=== PATIENT | female | born 1990 | race African-American/Black ===

== ENCOUNTER 2020-06-20 09:00 | Outpatient (CLI) | payer OTHER | END 2020-06-20 23:59 | disposition home or self-care (01) | LOC: LAB 09:00 | PROVIDERS: ATTEND Specialist | DX: U07.1 COVID-19 (principal) | CPT/HCPCS: 87426; C9803 ×2; U0003 ==

== ENCOUNTER 2020-10-16 08:43 | Outpatient (CLI) | payer OTHER ==
[2020-10-18] MEDS ORDERED: ANESTHESIA TRAY IN PYXIS 1 EA TRAY MC ONE (15:42)
== END 2020-10-16 23:59 | disposition home or self-care (01) ==
LOC: LAB 08:43
PROVIDERS: ATTEND Specialist
DX: Z01.812 Encounter for preprocedural laboratory examination (principal); Z20.822 Contact with and (suspected) exposure to COVID-19
CPT/HCPCS: C9803; U0003

== ENCOUNTER 2020-10-19 06:02 | Day surgery (SDC) | payer OTHER ==
[2020-10-19] MEDS ORDERED: KETOROLAC TROMETHAMINE INJ 30 MG/ML VIAL ONE (06:23)
[2020-10-19] MEDS ORDERED: oxyCODONE HCL SR 20MG TAB.SR.12H PO ONE (06:23)
[2020-10-19] MEDS ORDERED: ACETAMINOPHEN 325 MG TABLET ONE (06:23)
[2020-10-19] MEDS ORDERED: GABAPENTIN 300 MG CAPSULE ONE (06:25)
[2020-10-19] MEDS ORDERED: BUPIVACAINE MPF 0.5% W/EPI INJ 30 ML VIAL ONE (06:40)
[2020-10-19] MEDS ORDERED: IOHEXOL 240MG/ML 50 ML IV ONE (06:40)
[2020-10-19] MEDS ORDERED: HEMOSTATIC MATRIX 8 ML 1 EACH PAD MC ONE (06:40)
[2020-10-19] MEDS ORDERED: METHYLENE BLUE 10 ML VIAL ONE (06:40)
[2020-10-19] MEDS ORDERED: LIDOCAINE 1% INJ 50 ML MDV IJ ONE (06:41)
[2020-10-19] MEDS ORDERED: CEFAZOLIN 1 GM ONE (06:41)
[2020-10-19] MEDS ORDERED: methylPREDNISolone ACETATE 80 MG/ML VIAL ONE (06:42)
[2020-10-19] MEDS ORDERED: FENTANYL PF 250MCG/5ML AMPUL ONE (07:20)
[2020-10-19] MEDS ORDERED: HYDROMORPHONE INJ 2 MG/ML DISP.SYRIN ONE (07:20)
[2020-10-19] MEDS ORDERED: MIDAZOLAM HCL 2 MG/2ML VIAL ONE (07:21)
[2020-10-19] MEDS ORDERED: ONDANSETRON HCL/PF 4 MG/2 ML VIAL ONE (12:45)
[2020-10-19] MEDS ORDERED: HYDROCODONE/APAP 5/325MG TABLET ONE (15:01)
== END 2020-10-19 15:47 | disposition home or self-care (01) ==
LOC: DS 06:02
PROVIDERS: ATTEND Specialist
DX: M51.16 Intervertebral disc disorders with radiculopathy, lumbar region (principal); E66.3 Overweight; Z88.8 Allergy status to other drugs, medicaments and biological substances
CPT/HCPCS: 36415; 62323; 63030; 72100; 84703; 86850; A6209 ×2; A6402; J0330; J0690 ×2; J1040; J1100; J1170; J1885; J2250; J2405; J2704; J2765; J3010; J3490 ×4; Q9966; Q9968